=== PATIENT | female | born 1965 | race Hispanic/Latino ===

== ENCOUNTER → 2020-08-12 | Outpatient (CLI) | payer OTHER ==
[~2020-08-12] MED LIST: CALC1TAB2 PO; FOLIC ACID; HYDR1POW19 PO; METO-391 PO; OMEG1CAP6 PO; VIT B12 PO
== END | disposition home or self-care (01) ==
LOC: RAH 07:34
PROVIDERS: ATTEND Internal Medicine
DX: S00.83XA Contusion of other part of head, initial encounter (principal); H57.89 Other specified disorders of eye and adnexa; G93.89 Other specified disorders of brain; G31.9 Degenerative disease of nervous system, unspecified; W19.XXXA Unspecified fall, initial encounter; Y93.89 Activity, other specified; Y92.89 Other specified places as the place of occurrence of the external cause; Y99.8 Other external cause status
CPT/HCPCS: 70450